=== PATIENT | female | born 2000 | race Caucasian/White ===

== ENCOUNTER 2022-09-20 08:00 | Outpatient (CLI) | payer OTHER ==
[2022-09-20 16:52] LABS: BILIRUBIN,URINE NEGATIVE (NEGATIVE); GLUCOSE, URINE (UA) NEGATIVE (NEGATIVE); KETONES,URINE (UA) TRACE mg/dL (NEGATIVE); LEUKOCYTE ESTERASE, URINE MODERATE (NEGATIVE); NITRITE,URINE NEGATIVE (NEGATIVE); OCCULT BLOOD,URINE NEGATIVE (NEGATIVE); PROTEIN,URINE NEGATIVE (NEGATIVE); UROBILINOGEN,URINE 0.2 (NORMAL) E.U./dL (NORMAL)
[2022-09-20 17:01] LABS: BACTERIA,URINE Many /HPF (None Seen); CLARITY,URINE CLOUDY (CLEAR); RBC,URINE 0-5 /HPF (0-5); SQUAMOUS EPITHELIAL CELL,UR MOD Squamous (<= Few)
== END 2022-09-20 23:59 | disposition home or self-care (01) ==
LOC: LAB 08:00
PROVIDERS: ATTEND Nurse Practitioner
DX: Z34.90 Encounter for supervision of normal pregnancy, unspecified, unspecified trimester (principal); Z36.89 Encounter for other specified antenatal screening
CPT/HCPCS: 81001; 87086

== ENCOUNTER 2022-09-26 09:41 | Outpatient (CLI) | payer OTHER ==
[2022-09-26 12:08] LABS: BASOPHILS # (AUTO) 0.1 10^3/uL (0.0-0.1); EOSINOPHILS # (AUTO) 0.1 10^3/uL (0.0-0.7); EOSINOPHILS % (AUTO) 1.2 %; HCT - HEMATOCRIT 37.2 % (37.0-47.0); HGB - HEMOGLOBIN 11.4 g/dL (12.0-16.0); LYMPHOCYTES # (AUTO) 1.2 10^3/uL (1.5-3.5); LYMPHOCYTES % (AUTO) 20.3 %; MEAN CORPUSCULAR HEMOGLOBIN 23.7 pg (27.0-31.0); MEAN CORPUSCULAR HGB CONC 30.6 g/dL (32.0-36.0); MEAN CORPUSCULAR VOLUME 77.3 fL (81.0-99.0); MEAN PLATELET VOLUME 11.2 fL (7.9-10.8); MONOCYTES # (AUTO) 0.2 10^3/uL (0.0-1.0); MONOCYTES % (AUTO) 4.1 %; NEUTROPHILS # (AUTO) 4.3 10^3/uL (1.5-6.6); NEUTROPHILS % (AUTO) 73.2 %; PLT - PLATELET COUNT 270 10^3/uL (130-450); RED BLOOD COUNT 4.81 10^6/uL (4.20-5.40); RED CELL DISTRIBUTION WIDTH 14.9 % (12.0-15.0); WHITE BLOOD COUNT 5.9 x10^3/uL (4.8-10.8)
[2022-09-26 12:17] LABS: BILIRUBIN,URINE NEGATIVE (NEGATIVE); GLUCOSE, URINE (UA) NEGATIVE (NEGATIVE); KETONES,URINE (UA) TRACE mg/dL (NEGATIVE); LEUKOCYTE ESTERASE, URINE NEGATIVE (NEGATIVE); NITRITE,URINE NEGATIVE (NEGATIVE); OCCULT BLOOD,URINE NEGATIVE (NEGATIVE); PROTEIN,URINE NEGATIVE (NEGATIVE); UROBILINOGEN,URINE 0.2 (NORMAL) E.U./dL (NORMAL)
[2022-09-26 12:35] LABS: BACTERIA,URINE Few /HPF (None Seen); CLARITY,URINE SL. CLOUDY (CLEAR); MUCUS,URINE Marked Strands; RBC,URINE None Seen /HPF (0-5); SQUAMOUS EPITHELIAL CELL,UR MANY Squamous (<= Few); WBC,URINE 0-3 /HPF (0-5)
[2022-09-27 06:09] LABS: HBsAG SCREEN Negative (Negative)
[2022-09-27 07:09] LABS: HCV AB <0.1 s/co ratio (0.0-0.9)
[2022-09-27 08:10] LABS: RPR Non Reactive (Non Reactive)
[2022-09-27 09:09] LABS: VARICELLA-ZOSTER AB IGG 268 index (Immune >165)
[2022-09-28 00:08] LABS: HIV SCREEN 4TH GENERATION Non Reactive (Non Reactive)
== END 2022-09-26 09:42 | disposition home or self-care (01) ==
LOC: LAB.N 09:41
PROVIDERS: ATTEND Nurse Practitioner
DX: O23.90 Unspecified genitourinary tract infection in pregnancy, unspecified trimester (principal); Z36.89 Encounter for other specified antenatal screening
CPT/HCPCS: 36415; 81001; 81003; 85025; 86592; 86762; 86787; 86803; 86850; 86900; 86901; 87086; 87340; 87389

== ENCOUNTER 2022-09-30 14:23 | Outpatient (CLI) | payer OTHER ==
--- NOTE | 2022-09-30 16:40 | Ultrasound Report ---
PROCEDURE: OB First Trimester INDICATIONS: SUPERVISION OF OUTSIDE/PRIOR DATING DATA: Last menstrual period (LMP): 07/02/2022. LMP-based estimated date of delivery (JOSE ANGEL): 04/08/2023. First dating scan (date and location): 09/30/2022. Estimated date of delivery (JOSE ANGEL) from first dating scan: 04/08/2023. The below data below was generated using the study generated JOSE ANGEL of 04/08/2023 TECHNIQUE: Real-time scanning was performed of the fetus and maternal pelvic organs, with image documentation. COMPARISON: None. FINDINGS: Embryo: There is single intrauterine gestational sac with fetus seen. [place]-rump length measures 6.4 5 cm. Estimated gestational age based on current study is 12 weeks, 6 days. Heart rate: 164 bpm. Cervix is closed and measures 3.5 cm in length which is within normal limits. Measurement variability in dating: +/- 4 weeks by LMP, +/- 7 days by mean sac diameter (use before 6 weeks gestation if crown-rump length not able to be measured), +/- 5 days by crown-rump length (6-12 weeks gestation). Maternal organs: Ovaries are not well seen, no gross adnexal mass is seen.. IMPRESSION: Single live intrauterine gestation with fetus seen. heart rate is 164 bpm. Estimated gestationa l age is 12 weeks, 6 days. No gross perigestational hemorrhage. Cervix is closed and measures 3.5 cm in length. Reviewed by: Bernard Walsh MD on 09/30/2022 4:38 PM PST Approved by: Bernard Walsh MD on 09/30/2022 4:38 PM PST Station ID: [id number]
== END 2022-09-30 14:24 | disposition home or self-care (01) ==
LOC: DI 14:23
PROVIDERS: ATTEND Nurse Practitioner
DX: Z34.91 Encounter for supervision of normal pregnancy, unspecified, first trimester (principal)

== ENCOUNTER 2022-10-18 07:00 | Outpatient (CLI) | payer OTHER ==
[2022-10-18 23:06] LABS: CHLAMYDIA TRACHOMATIS DNA NEGATIVE (NEGATIVE); NEISSERIA GONORRHOEAE DNA NEGATIVE (NEGATIVE); TRICHOMONAS VAGINALIS DNA NEGATIVE (NEGATIVE)
== END 2022-10-18 23:59 | disposition home or self-care (01) ==
LOC: LAB.S 07:00
PROVIDERS: ATTEND Obstetrics & Gynecology
DX: Z11.3 Encounter for screening for infections with a predominantly sexual mode of transmission (principal)
CPT/HCPCS: 87491; 87591; 87661

== ENCOUNTER 2022-11-22 16:46 | Outpatient (CLI) | payer OTHER ==
--- NOTE | 2022-11-22 20:15 | Ultrasound Report ---
PROCEDURE: OB Detailed Eval INDICATIONS: SUPERVISION OF OUTSIDE/PRIOR DATING DATA: Last menstrual period (LMP): 07/02/2022. LMP-based estimated date of delivery (JOSE ANGEL): 04/08/2023. First dating scan (date and location): 09/30/2022. Estimated date of delivery (JOSE ANGEL) from first dating scan: 04/08/2023. The below data below was generated using the ultrasound JOSE ANGEL of 04/08/2023 TECHNIQUE: Real-time scanning was performed of the fetus, with image documentation and biometric measurements. Endovaginal scanning: Not performed COMPARISON: 09/30/2022 FINDINGS: Living second trimester intrauterine with no sonographic evidence of complicatio ns. General: A single living intrauterine gestation is present. Presentation: Breech Placenta: Placental position is anterior, without previa. Amniotic fluid index: 12.9 cm, within normal limits for gestational age. heart rate: 150 beats per minute. Maternal cervical canal: 4.9 cm long; normal length is 2.5 cm or more. biometrics: Biparietal diameter: 4.4 cm, 19 weeks 4 days Head circumference: 17.17 cm, 20 weeks 2 days Abdominal circumference: 14.89 cm, 20 weeks 1 day Femur length: 3.16 cm, 19 weeks 6 days Estimated gestational age from initial scan: 20 weeks 3 days Composite gestational age from present scan: 19 weeks 6 days Estimated weight and percentile: 326.2 g, 23.7 percentile Measurement variability in biometric dating: +/- 10 days from 12-20 weeks gestation, +/- 2 weeks from 20-30 weeks gestation, +/- 3 weeks at 30 weeks gestation or later. Anatomic survey: Neuro: Ventricles are normal at less than 10 mm. Cisterna magna is normal at 3-11 mm. Cerebellum i s normal in size and morphology. Nuchal skin fold: Normal at less than 6 mm between 14 and 20 weeks gestational age. Face: Nose and lips, facial profile are normal. Spine: No evidence for spina bifida. Heart: 4-chambered heart is present, with normal ventricular outflow tracts. Diaphragm: Diaphragm is intact. Stomach: Left-sided stomach is present. Kidneys: No hydronephrosis. Normal is less than 5 mm in 2nd trimester, less than 7 mm in 3rd trimester. Cord: 3 vessel cord has orthotopic insertion. Bladder: Normal in size. Extremities: All 4 extremities are visualized. IMPRESSION: 1. Living second trimester intrauterine . Current ultrasound age is 4 days less than clinica l age based on LMP and initial ultrasound. 2. Normal anatomy study. Reviewed by: Devin Mcdermott MD on 11/22/2022 8:14 PM PST Approved by: Devin Mcdermott MD on 11/22/2022 8:14 PM PST Station ID: [id number]
== END 2022-11-22 16:47 | disposition home or self-care (01) ==
LOC: DI 16:46
PROVIDERS: ATTEND Obstetrics & Gynecology
DX: Z34.92 Encounter for supervision of normal pregnancy, unspecified, second trimester (principal)

== ENCOUNTER 2022-12-28 09:31 | Outpatient (CLI) | payer OTHER ==
[2022-12-28 18:58] LABS: HCT - HEMATOCRIT 34.8 % (37.0-47.0); HGB - HEMOGLOBIN 9.8 g/dL (12.0-16.0); MEAN CORPUSCULAR HEMOGLOBIN 22.2 pg (27.0-31.0); MEAN CORPUSCULAR HGB CONC 28.2 g/dL (32.0-36.0); MEAN CORPUSCULAR VOLUME 78.9 fL (81.0-99.0); MEAN PLATELET VOLUME 12.5 fL (7.9-10.8); RED BLOOD COUNT 4.41 10^6/uL (4.20-5.40); RED CELL DISTRIBUTION WIDTH 14.3 % (12.0-15.0); WHITE BLOOD COUNT 9.5 x10^3/uL (4.8-10.8)
== END 2022-12-28 09:32 | disposition home or self-care (01) ==
LOC: LAB.N 09:31
PROVIDERS: ATTEND Obstetrics & Gynecology
DX: Z34.90 Encounter for supervision of normal pregnancy, unspecified, unspecified trimester (principal)
CPT/HCPCS: 36415; 82950; 85027

== ENCOUNTER 2023-02-01 17:59 | Outpatient (CLI) | payer OTHER | END 2023-02-01 18:00 | disposition EMS.NT | LOC: EMS 17:59 | DX: Z04.1 Encounter for examination and observation following transport accident (principal) ==

== ENCOUNTER 2023-02-01 20:56 | Outpatient (CLI) | payer OTHER | END 2023-02-01 20:57 | disposition EMS.NT | LOC: EMS 20:56 | DX: O99.891 Other specified diseases and conditions complicating pregnancy (principal); R10.31 Right lower quadrant pain; R10.32 Left lower quadrant pain; V49.60XA Unspecified car occupant injured in collision with unspecified motor vehicles in traffic accident, initial encounter ==

== ENCOUNTER 2023-03-06 15:23 | Outpatient (CLI) | payer OTHER | END 2023-03-06 15:24 | disposition home or self-care (01) | LOC: LAB.N 15:23 | PROVIDERS: ATTEND Obstetrics & Gynecology | DX: L29.8 Other pruritus (principal) | CPT/HCPCS: 82239 ==

== ENCOUNTER 2023-03-13 08:00 | Outpatient (CLI) | payer OTHER | END 2023-03-13 23:59 | disposition home or self-care (01) | LOC: LAB.WC 08:00 | PROVIDERS: ATTEND Obstetrics & Gynecology | DX: Z3A.36 36 weeks gestation of pregnancy (principal) | CPT/HCPCS: 87797 ==

== ENCOUNTER 2023-03-13 15:16 | Outpatient (CLI) | payer OTHER ==
[2023-03-13 15:29] LABS: HGB - HEMOGLOBIN 12.6 g/dL (12.0-16.0); MEAN CORPUSCULAR HEMOGLOBIN 24.5 pg (27.0-31.0); MEAN CORPUSCULAR HGB CONC 30.7 g/dL (32.0-36.0); MEAN CORPUSCULAR VOLUME 79.6 fL (81.0-99.0); MEAN PLATELET VOLUME 10.7 fL (7.9-10.8); RED BLOOD COUNT 5.15 10^6/uL (4.20-5.40); RED CELL DISTRIBUTION WIDTH 18.7 % (12.0-15.0); WHITE BLOOD COUNT 8.4 x10^3/uL (4.8-10.8)
[2023-03-13 15:42] LABS: ALBUMIN 3.1 g/dL (3.2-5.5); ALBUMIN/GLOBULIN RATIO 0.7 (1.0-2.2); BILIRUBIN,TOTAL 0.4 mg/dL (0.2-1.0); CALCIUM 8.7 mg/dL (8.5-10.3); CREATININE 0.7 mg/dL (0.4-1.0); TOTAL PROTEIN 7.3 g/dL (6.7-8.2)
== END 2023-03-13 15:17 | disposition home or self-care (01) ==
LOC: LAB 15:16
PROVIDERS: ATTEND Obstetrics & Gynecology
DX: O26.613 Liver and biliary tract disorders in pregnancy, third trimester (principal); K83.1 Obstruction of bile duct; O99.013 Anemia complicating pregnancy, third trimester; Z3A.36 36 weeks gestation of pregnancy
CPT/HCPCS: 36415; 80053; 82542; 82728; 85027; 87797

== ENCOUNTER 2023-03-25 13:51 | Outpatient (CLI) | payer OTHER, MEDICAID | END 2023-03-25 13:52 | disposition home or self-care (01) | LOC: LAB 13:51 | PROVIDERS: ATTEND Obstetrics & Gynecology | DX: L29.9 Pruritus, unspecified (principal) | CPT/HCPCS: 36415; 82239 ==

== ENCOUNTER 2023-04-14 14:48 | Inpatient (IN) | payer OTHER, MEDICAID ==
[2023-04-14] MEDS ORDERED: TRANEXAMIC ACID IN NACL 1,000 MG/100 ML BAG IV PRN (15:26)
[2023-04-14] MEDS ORDERED: SODIUM CHLORIDE FLUSH 0.9% 10 ML SYRINGE IVP PRN (15:26)
[2023-04-14] MEDS ORDERED: METHYLERGONOVINE 0.2 MG/ML VIAL IM PRN (15:26)
[2023-04-14] MEDS ORDERED: OXYTOCIN 10 UNIT/ML VIAL IM PRN (15:26)
[2023-04-14] MEDS ORDERED: lidocaine 1% 20 ML MDV ID PRN (15:26)
[2023-04-14] MEDS ORDERED: CARBOPROST TROMETHAMINE 250 MCG/ML AMP IM PRN (15:26)
[2023-04-14] MEDS ORDERED: OXYTOCIN/SODIUM CHLORIDE 500 ML IV PRN (15:26)
[2023-04-14] MEDS ORDERED: miSOPROStoL 200 MCG TABLET BC PRN (15:26)
--- NOTE | 2023-04-14 15:46 | ANESTHESIA ---
Pre-Anesthesia VS, & Labs - Diagnosis labor induction - Procedure labor epidural Vital Signs: Temp Pulse Resp BP Pulse Ox O2 Flow Rate 36.7 C 90 20 120/82 H 04/14/23 15:01 04/14/23 15:01 04/14/23 15:01 04/14/23 15:01 - NPO Other (clears when epidural placed) - Is Patient ?: Yes Home Medications and Allergies Active Medications Carboprost Tromethamine (Carboprost Tromethamine 250 Mcg/Ml Amp) 250 mcg IM Q15M PRN PRN Reason: Step 4: Hemorrhage protocol Stop: 04/19/23 15:27 Oxytocin/Sodium Chloride (Pitocin/Sodium Chloride) 500 mls @ 999 mls/hr IV PRN PRN; Protocol PRN Reason: POST- HEMORR PREVENTION Stop: 04/19/23 15:27 Tranexamic Acid (Tranexamic 1,000 Mg/100ml-Nacl) 1,000 mg in 100 mls @ 600 mls/hr IV .ONCE PRN PRN Reason: EBL >1200mL and within 3hr Stop: 04/19/23 15:27 Oxytocin/Sodium Chloride (Pitocin/Sodium Chloride) 500 mls @ 2 mls/hr IV TITR ARVIN; Protocol Lactated Ringer's (Lr) 1,000 mls @ 100 mls/hr IV .Q10H ARVIN Lidocaine HCl (Lidocaine 1% 20 Ml Mdv) 20 ml ID .ONCE PRN PRN Reason: PERINEAL REPAIR Stop: 04/19/23 15:27 Methylergonovine Maleate (Methylergonovine 0.2 Mg/Ml Vial) 0.2 mg IM .ONCE PRN PRN Reason: Step 2: Hemorrhage protocol Stop: 04/19/23 15:27 Misoprostol (Misoprostol 200 Mcg Tablet) 800 mcg BC .ONCE PRN PRN Reason: Step 3: Hemorrhage protocol Stop: 04/19/23 15:27 Oxytocin (Oxytocin 10 Unit/Ml Vial) 10 unit IM .ONCE PRN PRN Reason: Step one: If no IV access Stop: 04/19/23 15:27 Sodium Chloride (Sodium Chloride Flush 0.9% 10 Ml Syringe) 10 ml IVP 0100,0900,1700 ARVIN Sodium Chloride (Sodium Chloride Flush 0.9% 10 Ml Syringe) 10 ml IVP PRN PRN PRN Reason: NEEDED PER PROVIDER ORDERS Allergies/Adverse Reactions: Allergies Allergy/AdvReac Type Severity Reaction Status Date / Time No Known Allergies Allergy Unknown Verified 04/14/23 15:42 Anes History & Medical History - Anesthetic History Anesthesia Complications: reports: No previous complications - Medical History Cardiovascular: reports: None Pulmonary: reports: None Gastrointestinal: reports: None Exam General: Alert, Oriented x3 Dental: WNL Mouth Opening: Greater than 4 Fingerbreadths Neck Mobility: Normal Mallampati classification: I Thyromental Distance: greater than 6 cm Respiratory: Lungs clear Cardiovascular: Regular rate Plan Anesthesia Type: Epidural Consent for Procedure(s) Verified and Reviewed: Yes Code Status: Attempt Resuscitation ASA classification: 2-Mild systemic disease Is this case an emergency?: No
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
[2023-04-14] MEDS ORDERED: OXYTOCIN/SODIUM CHLORIDE 500 ML IV SCH (16:00)
[2023-04-14 16:18] LABS: BASOPHILS % (AUTO) 0.5 %; EOSINOPHILS # (AUTO) 0.1 10^3/uL (0.0-0.7); HCT - HEMATOCRIT 39.6 % (37.0-47.0); HGB - HEMOGLOBIN 12.7 g/dL (12.0-16.0); LYMPHOCYTES # (AUTO) 1.4 10^3/uL (1.5-3.5); MEAN CORPUSCULAR HEMOGLOBIN 25.9 pg (27.0-31.0); MEAN CORPUSCULAR HGB CONC 32.1 g/dL (32.0-36.0); MEAN CORPUSCULAR VOLUME 80.7 fL (81.0-99.0); MEAN PLATELET VOLUME 11.3 fL (7.9-10.8); MONOCYTES # (AUTO) 0.4 10^3/uL (0.0-1.0); MONOCYTES % (AUTO) 4.9 %; NEUTROPHILS # (AUTO) 5.7 10^3/uL (1.5-6.6); NEUTROPHILS % (AUTO) 75.2 %; PLT - PLATELET COUNT 219 10^3/uL (130-450); RED BLOOD COUNT 4.91 10^6/uL (4.20-5.40); RED CELL DISTRIBUTION WIDTH 16.1 % (12.0-15.0); WHITE BLOOD COUNT 7.6 x10^3/uL (4.8-10.8)
[2023-04-14] MEDS: LACTATED RINGERS 1,000 ML IV SCH (16:18)
--- NOTE | 2023-04-14 19:55 | HISTORY & PHYSICAL EXAMINATION ---
Admit History - Visit Reason Visit Reason: Other (Post dates induction) - : 3 Parity: 0 Care: positive: [facility] Risk/History: positive: Labor induction Complications This : positive: None Smoking Status: Former smoker - Mother's Labs Mother's Blood Type: positive: A Mother's RH: positive: Positive GBS: positive: Group B Step Negative Rubella Status: positive: Immune - Other Maternal History Other Maternal History: Med: iron deficiency Surg: denies Fam: khai Social: , denies richar - HPI Current EDU 04/08/23 Gestation 40 Weeks and 6 Days 3 Vital Signs Temperature 98.1 F 04/14/23 15:01 Heart Rate 90 04/14/23 15:01 Respiratory Rate 20 04/14/23 15:01 Blood Pressure 120/82 H 04/14/23 15:01 Temperature 97.7 F 04/14/23 16:20 Heart Rate 79 04/14/23 16:20 Respiratory Rate 16 04/14/23 16:20 Blood Pressure 120/82 H 04/14/23 16:20 O2 Saturation If not protocol: Oxygen Flow, liters/minute - Results and Plan Findings/Impression: Direct admission for planned induction Meds/Allgy - Allergies Allergies/Adverse Reactions: Allergies Allergy/AdvReac Type Severity Reaction Status Date / Time No Known Allergies Allergy Unknown Verified 04/14/23 15:42 Review of Systems - All Other Systems All Other Systems: reports: Reviewed and negative Physical - Abdominal Exam Vital Signs: Temp Pulse Resp BP Pulse Ox O2 Flow Rate 97.7 F 79 16 120/82 H 04/14/23 16:20 04/14/23 16:20 04/14/23 16:20 04/14/23 16:20 Contraction Frequency (min/apart): 8 Contraction Intensity: positive: Mild Uterine Resting Tone: positive: Soft - Monitoring Heart Rate Baseline: 130 Strip Review: positive: Category I - Presentation Presentation: positive: Vertex (3200g, placenta anterior) - Vaginal Exam Membranes: positive: Membranes intact Dilation (in cm): 3 Effacement (%): 50 Station: positive: -3 Cervical Position: positive: Midposition Plan for Labor - Plan For Labor I expect patient to be DC'd or transferred within 96 hours.: Yes Plan for Labor: 22yo at 40.6w by LMP consistent with 12w US presents for scheduled post- dates induction - Admit - T&S, CBC - uncomplicated. Iron deficiency diagnosed during . Evaluated for cholestasis of but evaluated was negative. - May have epidural prn - 3cm, will start Pitocin IOL - Cat 1, continue to monitor - Anticipate by tomorrow
[2023-04-14] MEDS ORDERED: LACTATED RINGERS 1,000 ML IV ONE (21:35)
[2023-04-14] MEDS ORDERED: DOXYLAMINE 25 MG TABLET PO PRN (23:13)
[2023-04-15] MEDS: LACTATED RINGERS 1,000 ML IV SCH ×2 (02:29→11:25)
[2023-04-15] MEDS: SODIUM CHLORIDE FLUSH 0.9% 10 ML SYRINGE IVP SCH ×2 (03:47→03:48)
--- NOTE | 2023-04-15 10:59 | PROVIDER PROGRESS NOTE ---
Labor Progress Note - Uterine Monitoring Uterine Monitoring Mode: positive: External toco Contraction Frequency (min/apart): 2 Contraction Intensity: positive: Mild to moderate Uterine Resting Tone: positive: Soft - Monitoring Monitor Mode: positive: External ultrasound Heart Rate Baseline: 130 Heart Rate Variability: positive: Moderate (6-25 bmp) Accelerations: positive: Present, 15x15 Decelerations: positive: None - Vaginal Exam Dilation (in cm): 6 Effacement (%): 50 Station: -2 Cervical Position: Midposition (AROM clear 1030) - Labor Progress Note Labor Progress Note/Additional Text: 22yo at 40.1 admitted for IOL - Pitocin at 8mu - AROM 1030, clear - Anticipate today - Cat 1
[2023-04-15] MEDS ORDERED: ROPIVACAINE 0.2% 200 MG/100 ML BAG EP ONE (14:14)
[2023-04-15] MEDS ORDERED: ePHEDrine 50 MG/ML VIAL IVP PRN (15:07)
[2023-04-15] MEDS ORDERED: ONDANSETRON 4 MG/2 ML VIAL IVP PRN ×3 (15:07→23:44)
[2023-04-15] MEDS ORDERED: NALBUPHINE 10 MG/ML AMP IVP PRN (15:07)
[2023-04-15] MEDS ORDERED: NALOXONE 0.4 MG/ML VIAL IVP PRN ×3 (15:07→23:44)
[2023-04-15] MEDS ORDERED: METOCLOPRAMIDE 10 MG/2 ML VIAL IVP PRN (15:07)
[2023-04-15] MEDS ORDERED: ROPIVACAINE 0.2% 200 MG/100 ML BAG EP PRN (15:07)
[2023-04-15] MEDS ORDERED: diphenhydrAMINE INJ 50 MG/ML VIAL IVP PRN (15:07)
[2023-04-15] MEDS ORDERED: LACTATED RINGERS 1,000 ML IY ONE (18:54)
--- NOTE | 2023-04-15 21:59 | PROVIDER PROGRESS NOTE ---
Labor Progress Note - Uterine Monitoring Uterine Monitoring Mode: positive: External toco Contraction Frequency (min/apart): 4 Contraction Intensity: positive: Moderate - Monitoring Monitor Mode: positive: External ultrasound Heart Rate Baseline: 150 Heart Rate Variability: positive: Moderate (6-25 bmp) Decelerations: positive: Late, Variable, Recurrent (>50% x20 min) Strip Review: positive: Category II - Vaginal Exam Dilation (in cm): 10 Effacement (%): 100 Station: 0 Cervical Position: Midposition - Labor Progress Note Labor Progress Note/Additional Text: 22yo at 41w admitted for post dates IOL. Induced with Pitocin, increased to 10mu/m but required decrease due to variables. AROM clear 1030 today, ruptured about 12h. Pitocin off, increased again to 2mu/m. Amnioinfusion performed for variables. Improved. Progressed to 10cm. Attempted pushing but with recurrent late decelerations and delivery not imminent. Recommended primary section for NRFHT. Informed consent obtained from patient.
[2023-04-15] MEDS ORDERED: CITRIC ACID/SODIUM CITRATE 15 ML UDC PO ONE ×2 (22:00→22:11)
[2023-04-15] MEDS ORDERED: ceFAZolin 2 GM in SODIUM CHLORIDE 0.9% MINIBAG 100 ML IV ONE (22:00)
[2023-04-15] MEDS ORDERED: ceFAZolin 2 GM VIAL ONE (22:10)
[2023-04-15] MEDS ORDERED: fentaNYL 100 MCG/2 ML VIAL ONE (22:30)
[2023-04-15] MEDS ORDERED: SODIUM CHLORIDE 0.9% 10 ML VIAL IVP ONE (22:48)
[2023-04-15] MEDS ORDERED: ONDANSETRON 4 MG/2 ML VIAL ONE (22:57)
--- NOTE | 2023-04-15 23:11 | DELIVERY NOTE ---
Delivery Note - Labor Labor: positive: Augmented by ARM, Induced by oxytocin - Infant Delivery Method Infant Delivery Method: positive: Primary - Presentation Presentation: positive: Vertex, KAREN - left occiput anterior - Nuchal Cord Nuchal Cord: positive: Present (x2 and body cord) - Anesthetic Anesthetic Type: - Amniotic Fluid Description Amniotic Fluid Description: positive: Clear - Delivery Outcome Delivery Outcome: positive: Livebirth - [place] : positive: Bulb syringe, Stimulated, Warmed [place] sex: positive: Male - Cord Cord: positive: 3 vessels - Placenta Placenta: positive: Intact, Manual removal - Estimated Blood Loss Estimated Blood Loss (in cc): 800 - Delivery Comments (Free Text/Narrative) Delivery Comments (Free Text/Narrative): See uncomplicated primary section operative report.
--- NOTE | 2023-04-15 23:13 | OPERATIVE REPORT ---
Operative Report - General Admit Date: 04/14/23 Procedure Date: 04/15/23 Planned Procedure: Primary section Pre-Op Diagnosis: 22yo with IUP 41w, NRFHT Procedure Performed: Primary section Post Op Diagnosis: 22yo with IUP 41w, NRFHT - Procedure Note Primary Surgeon: Laureen Guzman DO Secondary Surgeon: Radha Leon NP; assistance required for retraction, safe completion Anesthesia Provider: Trinidad Gamboa CRNA Anesthesia Technique: Epidural Pathology: None, placenta discarded Cord blood collected Estimated Blood Loss (mL): 800 Indications: 22yo with IUP 41w, NRFHT Findings: Normal appearing uterus, tubes , ovaries Viable male Nuchal cord x2, body cord, hypocoiled cord Complications: None - Other Other Information/Narrative: Under adequate epidural anaesthetic with a haines catheter inserted, the patient was prepped and draped in the usual sterile fashion in the supine position with a leftward tilt. A Pfannensteil incision was made. The incision was carried down to the fascia with sharp dissection. The fascia was incised transversely and dissected off the rectus muscle using blunt dissection. Electrocautery was used for hemostasis. The peritoneum was opened taking care not to injure the bladder. The vesicouterine peritoneum was dissected off the lower uterine segment. The lower segment was assessed and a low transverse incision was made. The uterine incision was extended bluntly. The fetus was presenting as a vertex. The head was delivered without difficulty and the rest of the body followed easily. Nuchal cord x2 noted and body cord. Cord hypocoiled and minimal Mckinley's jelly. After one minute of delayed cord clamping, the cord was clamped twice and cut and the baby transferred to the warmer, awaiting the nursing and pediatric staff. Cord blood obtained. The placenta was then delivered manually. The uterus was explored and was empty of all tissue. The uterus was exteriorized for better visualization. The uterine incision was then closed in two layers with 0- Monocryl suture. The first layer was locking and the second was imbricating. Tubes and ovaries were examined and appeared normal. Hemostasis at all dissection sites. The fascia was closed with 0-Vicryl in a running unlocked fashion. Subcutaneous layer reapproximated with 3-0 Chromic. The skin was then reapproximated with 3-0 Monocryl. At the end of the procedure all sponges, instruments, and sharps were counted and correct. Estimated blood loss was 800cc. The patient and baby boy were taken to the recovery in stable condition.
[2023-04-15] MEDS ORDERED: OXYTOCIN/SODIUM CHLORIDE 500 ML IV PRN (23:25)
[2023-04-15] MEDS ORDERED: CALCIUM CARBONATE CHEW 500 MG TABLET PO PRN (23:25)
[2023-04-15] MEDS ORDERED: SIMETHICONE CHEW 80 MG TABLET PO PRN (23:25)
[2023-04-15] MEDS ORDERED: HYDROCORTISONE 1% CREAM 28 GM TUBE TOP PRN (23:25)
[2023-04-15] MEDS ORDERED: WITCH HAZEL/GLYCERIN 1 PAD TOP PRN (23:25)
[2023-04-15] MEDS ORDERED: ACETAMINOPHEN 1,000 MG/100 ML 1,000 MG/100 ML BAG IV ONE (23:30)
[2023-04-15] MEDS ORDERED: LACTATED RINGERS 600 ML IV ONE (23:33)
[2023-04-15] MEDS ORDERED: HYDROmorphone 0.5 MG/0.5 ML SYRINGE IVP PRN (23:44)
[2023-04-15] MEDS ORDERED: ATROPINE ABBOJECT 1 MG/10 ML SYRINGE IVP PRN (23:44)
[2023-04-15] MEDS ORDERED: MORPHINE 2 MG/ML CARPUJECT IVP PRN (23:44)
[2023-04-15] MEDS ORDERED: fentaNYL 100 MCG/2 ML VIAL IVP PRN (23:44)
[2023-04-15] MEDS ORDERED: LACTATED RINGERS 1,000 ML IV SCH ×2 (23:45)
[2023-04-15] MEDS ORDERED: LIDOCAINE-PF 2% 10 ML AMP SUBQ ONE (23:45)
[2023-04-16] MEDS: LACTATED RINGERS 1,000 ML IV SCH (00:21)
[2023-04-16] MEDS: oxyCODONE 5 MG TABLET PO PRN ×4 (02:53→21:27)
[2023-04-16 05:09] LABS: HCT - HEMATOCRIT 31.7 % (37.0-47.0); HGB - HEMOGLOBIN 10.1 g/dL (12.0-16.0); MEAN CORPUSCULAR HEMOGLOBIN 26.1 pg (27.0-31.0); MEAN CORPUSCULAR HGB CONC 31.9 g/dL (32.0-36.0); MEAN CORPUSCULAR VOLUME 81.9 fL (81.0-99.0); MEAN PLATELET VOLUME 10.9 fL (7.9-10.8); RED BLOOD COUNT 3.87 10^6/uL (4.20-5.40); RED CELL DISTRIBUTION WIDTH 15.9 % (12.0-15.0)
[2023-04-16] MEDS: SODIUM CHLORIDE FLUSH 0.9% 10 ML SYRINGE IVP SCH (05:16)
[2023-04-16] MEDS: KETOROLAC 30 MG/ML VIAL IVP SCH ×3 (05:16→15:52)
[2023-04-16] MEDS: DOCUSATE SODIUM 100 MG CAPSULE PO SCH ×2 (08:24→21:27)
[2023-04-16] MEDS: ACETAMINOPHEN 500 MG TABLET PO SCH ×2 (08:25→15:51)
[2023-04-16] MEDS ORDERED: FERRIC GLUCONATE 125 MG in SODIUM CHLORIDE 0.9% 100ML 100 ML IV SCH (10:00)
[2023-04-16] MEDS ORDERED: IBUPROFEN 600 MG TABLET PO SCH (18:00)
[2023-04-16] MEDS: IBUPROFEN 800 MG TABLET PO SCH (22:07)
--- NOTE | 2023-04-16 22:31 | PROVIDER PROGRESS NOTE ---
Subjective - Prog Note Date Prog Note Date: 04/16/23 Prog Note Time: 18:40 - Subjective Pt reports feeling: Improved Subjective: Comfortable. Minimal lochia. Ambulating. Voiding. Tolerating regular diet. . Mood is good. Objective - Vital Signs/Intake & Output Reviewed Vital Signs: Yes Vital Signs: Vital Signs x48h Temp Pulse Resp BP Pulse Ox 04/16/23 16:02 97.9 F 88 18 108/63 99 Intake & Output: Intake & Output 04/13/23 04/14/23 04/15/23 04/16/23 23:59 23:59 23:59 23:59 Intake Total 824.175 0813.467 2159.5 Output Total 300 1450 Balance 934.311 0294.467 709.5 - Objective General Appearance: positive: No acute distress Eyes Bilateral: positive: Normal inspection Respiratory: positive: No respiratory distress Abdomen: positive: Other (Dressing clean and dry) Skin: positive: Color nml Extremities: positive: Non-tender Neurologic/Psychiatric: positive: Oriented x3 - Lab Results Fish Bones: 04/16/23 04:59 Other Labs: Lab Results x24hrs 04/16/23 04/16/23 Range/Units 04:59 04:59 WBC 16.0 H (4.8-10.8) x10^3/uL RBC 3.87 L (4.20-5.40) 10^6/uL Hgb 10.1 L (12.0-16.0) g/dL Hct 31.7 L (37.0-47.0) % MCV 81.9 (81.0-99.0) fL MCH 26.1 L (27.0-31.0) pg MCHC 31.9 L (32.0-36.0) g/dL RDW 15.9 H (12.0-15.0) % Plt Count 174 (130-450) 10^3/uL MPV 10.9 H (7.9-10.8) fL Ferritin 28.7 (11.0-306.8) ng/mL Assessment/Plan - Problem List (1) care following delivery Impression: 22yo s/p PCD for NRFHT following IOL for post dates at 41w, POD#1 /postoperative care (2) Single live Impression: Anticipate discharge tomorrow (3) 41 weeks gestation of Impression: Baby boy doing well rooming in with mother (4) Postoperative anemia due to acute blood loss Impression: Ferrlicit x1 given. Continue vitamins.
[2023-04-17] MEDS: ACETAMINOPHEN 500 MG TABLET PO SCH ×2 (00:18→10:31)
[2023-04-17] MEDS: IBUPROFEN 800 MG TABLET PO SCH ×2 (04:14→10:30)
[2023-04-17] MEDS: oxyCODONE 5 MG TABLET PO PRN (08:21)
[2023-04-17] MEDS: DOCUSATE SODIUM 100 MG CAPSULE PO SCH (08:21)
--- NOTE | 2023-04-17 08:32 | Discharge Plan ---
Discharge Plan Problem Reviewed?: Yes Disposition: Home, Self Care Condition: Good Diet: Regular Activity Restrictions: No Restrictions Shower Restrictions: No Driving Restrictions: Yes (no driving with narcotics) Weight Bearing: Full Weight No Smoking: If you smoke, Please STOP! Call for help.
[2023-04-17 08:53] VITALS: BP 109/66
--- NOTE | 2023-04-17 09:10 | DISCHARGE SUMMARY ---
"Discharge Summary Admit Date: 04/14/23 Discharge Date: 04/17/23 Discharging Provider: Laureen Guzman Code Status: Attempt Resuscitation Condition at Discharge: Good Discharge Disposition: 01 Home, Self Care Discharge Facility Name: [facility] - DIAGNOSES Admission Diagnoses: 22yo admitted 04/14/23 for post dates induction at 40.6w - HPI History of Present Illness: 22yo admitted 04/14/23 for post dates induction at 40.6w - CONSULTS | PROCEDURES Consultations: Anesthesia - HOSPITAL COURSE Hospital Course: 22yo admitted 04/14/23 for post dates induction at 40.6w. complicated by iron deficiency. 3cm on admission and Pitocin started. AROM, clear. Epidural in place. She started to have variable decelerations. Amnioinfusion completed with some improvement. 10cm and pushing started but with recurrent variable and late decelerations. Decision made for PCD for NRFHT. See uncomplicated PCD operative note. Recovering well and feels ready for discharge POD#2. Received Ferrlicit infusion x1. Pain controlled. Appropriate lochia. Voiding. well. Mood is good. , postoperative care and PPD discussed. - ALLERGIES Allergies/Adverse Reactions: Allergies Allergy/AdvReac Type Severity Reaction Status Date / Time No Known Allergies Allergy Unknown Verified 04/14/23 15:42 - PHYSICAL EXAM AT DISCHARGE General Appearance: positive: No acute distress Eyes Bilateral: positive: EOMI Respiratory: positive: No respiratory distress Abdomen: positive: Other (Dressing removed, incision c/d/i with steri strips) Back: positive: Nml inspection Skin: positive: Color nml Extremities: positive: Non-tender Neurologic/Psychiatric: positive: Oriented x3 - LABS Result Diagrams: 04/16/23 04:59 - QUALITY (Female Hip Fx Only) Was patient sent home on osteoporosis medication?: No - FOLLOW UP Follow Up: 04/22/23 315 - TIME SPENT Time Spent in Discharge (Minutes): 25"
--- NOTE | 2023-04-17 13:35 | Labor Flowsheet ---
Labor Flowsheet Datetime Report Generated by CPN: 04/17/2023 13:35 Datetime: 04/15/2023 22:00 Frequency (min): 3-4 Quality: Moderate Duration (sec): 60-90 Pattern: Normal: <= 5 Contractions in 10 Minutes Resting Tone (Palpate): Relaxed ASSESSMENT A Monitor Mode: Telemetry FHR Baseline Rate : 145 Variability: Moderate 6-25 bpm Accelerations: 10X10 Decelerations: Prolonged Category: Category II Datetime: 04/15/2023 21:57 Patient Care Comments: Shaved arben area and wiped down with theraworx in all extremities. Datetime: 04/15/2023 21:55 Pulse: 92 SpO2 (%): 100 LaborFlag: Labor Datetime: 04/15/2023 21:48 Communication Comments: Decision made to proceed to OR for CSection. Operative team called by Dinora sea Stobaugh, cloth reeler Datetime: 04/15/2023 21:46 VITAL SIGNS NBP Sys/Leanne/Mean (mmHg): 122 : 84 : 93 Datetime: 04/15/2023 21:36 Temperature (C): 37.4 Datetime: 04/15/2023 21:30 Monitor Interventions for UA: [place] Adjusted Contraction Comments: indeterminate of UC pattern Datetime: 04/15/2023 21:07 MEDICATIONS Pitocin (milliunits): Discontinued Patient Position/Activity: Left Extreme Datetime: 04/15/2023 21:05 VAGINAL EXAM Dilatation (cm): 10.0 Effacement (%): 100 Station: 0 Exam by: Megan STAGE 2 Pushing: Coached on Pushing; No Urge to Push Pushing Position: Pushing with Contractions; Pushing Lithotomy Datetime: 04/15/2023 21:01 Pitocin Checklist: At Least 1 Acceleration of 15 bpm x 15 Seconds in 30 Minutes or Adequate Variabi lity; No More than 1 Late Deceleration Occurred in Past 30 Minutes; No More than 5 Uterine Contractio ns in 10 Minutes for any 20 Minute Interval; Uterus Palpates Soft between Contractions COMMUNICATION Communication: Provider at Bedside Provider Notified (Name): Dr. Guzman Datetime: 04/15/2023 20:07 Provider Reviewed Strip: Yes Strip Reviewed by: Dr. [place] Datetime: 04/15/2023 20:00 Resting Tone IUP (mmHg): 30 Intensity IUP (mmHg): 25-45 [place] Units (mmHg): 115 Datetime: 04/15/2023 19:46 PAIN Pain Scale: 2 Pain Type: Cramping; Contraction; Pressure Datetime: 04/15/2023 19:41 Pain Location: Perineum Datetime: 04/15/2023 19:00 UTERINE ACTIVITY Monitor Mode: Internal Datetime: 04/15/2023 18:16 Actions for Decelerations: Other Comments: Amnioinfusion started. 250ml/30min bolus and 100ml/hr per provider verbal order Datetime: 04/15/2023 17:15 FHR Baseline Changes: No Baseline Change Datetime: 04/15/2023 15:36 I/O Interventions: [place] Cath Inserted Datetime: 04/15/2023 14:40 Epidural Procedure: Loading Dose Datetime: 04/15/2023 14:27 PROCEDURE TIME OUT Procedure Verify: Correct Patient Identity; Correct Side and Site are Marked; Accurate Procedure Co nsent Form; Agreement on Procedure to be Done; Correct Patient Position; Relevant Images and Results are Properly Labeled and Displayed; Addressed Need to Administer Antibiotics or Fluids for Irrigation ; Safety Precautions Based on Patient History or Medication Use ANESTHESIA Anesthesia Plans: Epidural Epidural Positioning: Sitting Anesthesia Comments: lidocaine Datetime: 04/15/2023 14:00 Pain Coping: Requesting Pain Medication or Epidural Datetime: 04/15/2023 13:30 Pain Presence: Intermittent Pain Relief Measures: Comfort Measures Oxygen Method: Room Air Comfort Measures: Breathing/Relaxation Datetime: 04/15/2023 11:21 PATIENT CARE IV/Blood Work: IV Bolus Started; IV Bolus Given ml @ 300ml @ 900ml/hr Datetime: 04/15/2023 10:38 Membrane Status: Ruptured Membranes Ruptured Date/Time: 04/15/2023 10:38 Membranes Rupture Method: Artificial Amniotic Fluid Color: Clear Amniotic Fluid Amount: Small Amniotic Fluid Odor: None Datetime: 04/15/2023 06:54 Monitor Interventions for FHR: Ultrasound Adjusted Datetime: 04/15/2023 03:35 Respirations: 17 Datetime: 04/14/2023 23:25 Medication Comments: Unisom 25 mg PO Datetime: 04/14/2023 23:06 Vaginal Exam Comments: no change Datetime: 04/14/2023 20:39 Notification Reason: Status Datetime: 04/14/2023 19:29 Pain Goal: 5 Pain Assessment Comments: Pt states she will notify staff when she needs px medication TEACHING Plan of Care: Plan of Care Discussed Labor/Induction: Induction Pain Management: Epidural; Pain Scale/Goals; Comfort Measures Datetime: 04/14/2023 19:18 MATERNAL ASSESSMENT Level of Consciousness: Alert Headache: Denies Breath Sounds, Left: Clear and Equal Breath Sounds, Right: Clear and Equal Nausea/Vomiting: Denies RUQ Epigastric Pain: Denies Datetime: 04/14/2023 15:30 Stage of : Labor
--- NOTE | 2023-04-18 18:35 | ANESTHESIA POST OP EVALUATION ---
Anesthesia Post Eval - Post Anesthesia Eval Vitals: Last Vital Signs Temp 36.6 C 04/17/23 08:44 Pulse 66 04/17/23 08:44 Resp 17 04/17/23 08:44 BP 109/66 04/17/23 08:44 Pulse Ox 99 04/17/23 08:44 O2 Flow Rate CV Function Including HR & BP: Stable Pain Control: Satisfactory Nausea & Vomiting: Negative Mental Status: Baseline Respiratory Status: Airway Patent Hydration Status: Satisfactory Anesthesia Complications: None
== END 2023-04-17 12:28 | disposition home or self-care (01) | DRG 787 ==
LOC: WFO 14:48 → FBP 14:52 → WFO 15:53 → FBP 04-15 22:39
PROVIDERS: ADMIT Obstetrics & Gynecology; ATTEND Obstetrics & Gynecology
PROC: 3E033VJ Introduction of Other Hormone into Peripheral Vein, Percutaneous Approach (ICD-10-PCS; 2023-04-14)
PROC: 10907ZC Drainage of Amniotic Fluid, Therapeutic from Products of Conception, Via Natural or Artificial Opening (ICD-10-PCS; 2023-04-15)
PROC: 10D00Z1 Extraction of Products of Conception, Low, Open Approach (ICD-10-PCS; principal; 2023-04-15 22:00)
DX: O48.0 Post-term pregnancy (principal); D62 Acute posthemorrhagic anemia; Z37.0 Single live birth; O76 Abnormality in fetal heart rate and rhythm complicating labor and delivery; Z87.891 Personal history of nicotine dependence; O99.02 Anemia complicating childbirth; D50.9 Iron deficiency anemia, unspecified; Z3A.41 41 weeks gestation of pregnancy; O69.81X0 Labor and delivery complicated by cord around neck, without compression, not applicable or unspecified
CPT/HCPCS: 36415; 82728; 85025; 85027; 86850; 86900; 86901; A9270; J0131; J2916; J7120